=== PATIENT | male | born 1965 | race Caucasian/White ===

== ENCOUNTER 2018-02-20 13:12 | Emergency (ER) | payer MEDICARE, OTHER ==
[~2018-02-20 13:12] MED LIST: AMIODARONE 50 MG/ML 3 ML VIAL IV ONE; DEXTROSE 5% IN WATER 100 ML BAG IV ONE; DEXTROSE 5% IN WATER 50 ML BAG ONE; EPINEPHrine 10 ML SYRINGE (0.1 MG/ML) ONE; SODIUM BICARB 8.4% 50 ML SYR (1 MEQ/ML) ONE
--- NOTE | 2018-02-20 13:51 | ED ---
CPR HPI - General Chief Complaint: Cardiac Arrest/CPR Stated Complaint: cardiac arrest Time Seen by Provider: 02/20/18 13:41 Source: EMS, RN notes reviewed Mode of arrival: EMS Limitations: altered mental status, physical limitation - History of Present Illness Initial Comments: 52-year-old male presents from assisted living facility in cardiopulmonary arrest. Patient was found by EMS in agonal respirations, initial rhythm was ventricular fibrillation, he was defibrillated by EMS. He had a brief return of spontaneous circulation during transport with a bradycardic rhythm. He was intubated by EMS prior to arrival. Patient lost his pulse prior to arrival. Initial call was at 1234. Patient presents to the emergency department at 1310. Initial rhythm was ventricular fibrillation. He was defibrillated, converted into PEA rhythm. Patient had a brief moment of ROSC. This deteriorated into PEA cardiac arrest. Resuscitation was followed by ACLS protocol. He did receive multiple doses of epinephrine, amiodarone, sodium bicarb. Please refer to nursing documentation for complete resuscitation. Ultimately patient was unable to be resuscitated and time of was called at 1333. This represents approximately downtime of one hour. MD Complaint: found unresponsive, stopped breathing Place: home Bystander CPR Performed: No (EMS perform CPR upon arrival) Shock Advised: Yes (1) Number of Shocks Delivered: 1 Initial Findings in the Field: unresponsive, no pulse, VTACH/VFIB ROSC in the Field: Yes Associated Injuries: No Treatments Prior to Arrival: intubation, BMV - Related Data Home Medications Medication Instructions Recorded Confirmed FLUoxetine HCL 80 mg PO DAILY 08/28/14 02/20/18 Ziprasidone [Geodon] 40 mg PO HS 08/28/14 02/20/18 Phenytoin Sodium Extended 300 mg PO DAILY 02/20/18 02/20/18 [Dilantin] Pravastatin Sodium [Pravachol] 10 mg PO HS 02/20/18 02/20/18 Zolpidem [Ambien] 5 mg PO HS 02/20/18 02/20/18 metFORMIN HCL [Glucophage] 500 mg PO TID 02/20/18 02/20/18 Allergies Allergy/AdvReac Type Severity Reaction Status Date / Time No Known Allergies Allergy Verified 02/20/18 13:44 Review of Systems ROS Statement: Those systems with pertinent positive or pertinent negative responses have been documented in the HPI. ROS Other: All systems not noted in ROS Statement are negative. Past Medical History Past Medical History: Diabetes Mellitus, Seizure Disorder Additional Past Medical History / Comment(s): MENTAL RETARDATION History of Any Multi-Drug Resistant Organisms: None Reported Additional Past Surgical History / Comment(s): HEART SURGERY TO REPAIR A HOLE Past Psychological History: Schizophrenia Smoking Status: Never smoker Past Alcohol Use History: None Reported Past Drug Use History: None Reported - Past Family History Father Additional Family Medical History / Comment(s): alchoholic/ from complications Mother Family Medical History: Diabetes Mellitus Additional Family Medical History / Comment(s): 6 yrs ago from hypoglycemic episode General Exam - General Exam Comments Initial Comments: 52-year-old man presents pale and cyanotic. He is intubated by EMS, he has bilateral breath sounds with BVM. No spontaneous heart sounds, no peripheral pulse. Abdomen is soft nondistended. Patient has no signs of life, no gag, no corneal reflex, no reflex, pupils are 5 mm and nonreactive bilaterally. Limitations: altered mental status, physical limitation Medical Decision Making - Medical Decision Making CPR continued upon arrival. Resuscitation followed ACLS protocol. Intubated by EMS prior to arrival. Patient had momentary return of spontaneous circulation. This deteriorated back into PEA arrest. There was 1 initial moment of ventricular fibrillation, patient was defibrillated and given amiodarone according to ACLS protocol. Case is discussed with the certified medical assistant and the patient's primary care physician Dr. Patino. Ultimately patient remained in PEA arrest and time of was called at 1333. Disposition Clinical Impression: Cardiac arrest Disposition: Condition: Undetermined Is patient prescribed a controlled substance at d/c from ED?: No Referrals: Gary Patino MD [Primary Care Provider] - 1-2 days Time of Disposition: 13:52 Preliminary Cause of : Cardiopulmonary arrest
== END 2018-02-20 16:12 | disposition expired ==
LOC: EC 13:12
DX: I46.9 Cardiac arrest, cause unspecified (principal); R41.82 Altered mental status, unspecified; E11.9 Type 2 diabetes mellitus without complications; G40.909 Epilepsy, unspecified, not intractable, without status epilepticus; F79 Unspecified intellectual disabilities; F20.9 Schizophrenia, unspecified; Z79.84 Long term (current) use of oral hypoglycemic drugs; Z79.899 Other long term (current) drug therapy; Z98.890 Other specified postprocedural states
CPT/HCPCS: 99285 ×2; 92950 ×2; 94002; 93005; J0282; J0171